=== PATIENT | female | born 1965 | race African-American/Black ===

== ENCOUNTER 2017-03-17 19:27 | Emergency (ER) | payer MEDICARE ==
[2017-03-17] MEDS ORDERED: SODIUM CHLORIDE 0.9% FLUSH 10 ML FLUSH IV FLUSH (21:15)
[2017-03-17 21:43] LABS: AUTOMATED NEUTROPHIL # 3.4 TH/MM3 (1.8-7.7); BASOPHIL # 0.1 TH/MM3 (0-0.2); BASOPHIL % 1.1 % (0.0-2.0); EOSINOPHIL # 0.2 TH/MM3 (0-0.4); EOSINOPHIL % 3.6 % (0.0-4.0); HEMATOCRIT 41.5 % (35.0-46.0); HEMO FLAGS DIFF FINAL; HEMOGLOBIN 13.4 GM/DL (11.6-15.3); LYMPH % 32.2 % (9.0-44.0); MEAN CORPUSCULAR HEMOGLOBIN 27.5 PG (27.0-34.0); MEAN CORPUSCULAR HGB CONC 32.4 % (32.0-36.0); MEAN PLATELET VOLUME 8.6 FL (7.0-11.0); MONO % 8.7 % (0.0-8.0); MONOCYTE # 0.5 TH/MM3 (0-0.9); NEUT % 54.4 % (16.0-70.0); PLATELET COUNT 275 TH/MM3 (150-450); RED BLOOD COUNT 4.88 MIL/MM3 (4.00-5.30); RED CELL DISTRIBUTION WIDTH 14.1 % (11.6-17.2); WHITE BLOOD COUNT 6.3 TH/MM3 (4.0-11.0)
[2017-03-17 21:57] LABS: ALT (GPT) 13 U/L (10-53)
[2017-03-17 21:59] LABS: ALKALINE PHOSPHATASE 88 U/L (45-117); TOTAL BILIRUBIN ADULT 0.3 MG/DL (0.2-1.0); TOTAL PROTEIN 8.1 GM/DL (6.4-8.2)
[2017-03-17 22:02] LABS: ALBUMIN 3.4 GM/DL (3.4-5.0); ANION GAP 3 MEQ/L (5-15); AST (GOT) 17 U/L (15-37); BICARBONATE 30.1 MEQ/L (21.0-32.0); BLOOD UREA NITROGEN 12 MG/DL (7-18); CALCIUM 9.2 MG/DL (8.5-10.1); CHLORIDE 107 MEQ/L (98-107); CREATININE 1.02 MG/DL (0.50-1.00); GLOMERULAR FILTRATION RATE 69 ML/MIN (>89); GLUCOSE,RANDOM 102 MG/DL (74-106); POTASSIUM 4.2 MEQ/L (3.5-5.1); SODIUM (NA) 140 MEQ/L (136-145)
[2017-03-17 22:15] LABS: AMORPHOUS SEDIMENT, URINE RARE; BACTERIA, URINE MANY /hpf; BILIRUBIN, URINE NEG (NEG); BLOOD, URINE NEG (NEG); GLUCOSE,URINE NEG (NEG); KETONE, URINE NEG (NEG); MUCUS URINE MANY /lpf (OCC); NITRITE,URINE NEG (NEG); SQUAMOUS EPITHELIAL CELL URINE 21 /hpf (0-5); URINE COLOR YELLOW (YELLW/STRAW); URINE LEUKOCYTE ESTERASE MOD (NEG)
[2017-03-17 22:16] LABS: COMMENT (UR) CULTURE INDICATED; CULTURE IF INDICATED CULTURE INDICATED
[2017-03-17] MEDS: cefTRIAXone INJ 1,000 MG in SODIUM CHLORIDE 0.9% INJ 100 ML IV (23:01)
== END 2017-03-18 00:53 | disposition home or self-care (01) ==
LOC: NEPD 03-18 00:53
DX: N39.0 Urinary tract infection, site not specified (principal); R42 Dizziness and giddiness; J45.909 Unspecified asthma, uncomplicated; I48.91 Unspecified atrial fibrillation; I10 Essential (primary) hypertension
CPT/HCPCS: 80053; 81001; 85025; 87086; 93005; 96365; 99284-25

== ENCOUNTER 2017-04-05 06:48 | Emergency (ER) | payer MEDICARE ==
[~2017-04-05] VITALS: Ht 170.2 cm; Wt 110.0 kg
[~2017-04-05 06:48] MED LIST: CART120C PO; CHOL10008 PO; FERR325T18 PO; HYDR25TA5 PO; MACR100C2 PO; VENTAER INH
[2017-04-05 06:50] VITALS: BP 148/82; PULSE 92; RESP 16; O2SAT 98
[2017-04-05] MEDS ORDERED: SODIUM CHLORIDE 0.9% FLUSH 10 ML FLUSH IVF PRN (07:30)
--- NOTE | 2017-04-05 07:46 | PD ---
HPI Chief Complaint: Cardiac Complaint Time Seen by Provider: 07:04 Travel History International Travel<30 days: No Contact w/Intl Traveler<30days: No Traveled to known affect area: No History of Present Illness HPI Patient 51-year-old female presents emergency department for an episode of palpitations that occurred earlier this morning about 3:00. She denies any chest pain shortness of breath abdominal pain or nausea vomiting. She states she has a history of atrial fibrillation and is not on any blood thinners currently but has been on blood thinners in the past for clots in her legs and is concerned that she might have developed a new clot in her leg because her left leg is swollen. States symptoms have now resolved, they were mild earlier this morning, associated signs and symptoms in context as above. PFSH Past Medical History Asthma: Yes Atrial Fibrillation: Yes Cardiovascular Problems: Yes (AFIB) Diminished Hearing: No Hypertension: Yes Medical other: Yes (LEFT LEG DVT) Neurologic: Yes (VERTIGO) Reproductive: Yes (UTERINE FIBROIDS) ?: Not Menopausal: Yes : 2 Para: 2 Miscarriage: 0 : 0 Past Surgical History Abdominal Surgery: Yes (HERNIA REPAIR ) Social History Alcohol Use: No (PT DENIES) Tobacco Use: No (QUIT 20 YEARS AGO) Substance Use: No (PT DENIES) Allergies-Medications (Allergen,Severity, Reaction): Coded Allergies: aspirin (Verified Allergy, Severe, HIVES, 04/05/17) penicillin G (Verified Allergy, Severe, HIVES, 04/05/17) morphine (Verified Allergy, Intermediate, HIVES, 04/05/17) Reported Meds & Prescriptions Reported Meds & Active Scripts Active Macrobid (Nitrofurantoin Monoh/Nitrofur Macro) 100 Mg Cap 100 Mg PO BID 7 Days Cartia Xt (Diltiazem ER 24 HR) 120 Mg Caper 120 Mg PO DAILY Hydrochlorothiazide 25 Mg Tab 25 Mg PO DAILY Reported Cartia Xt (Diltiazem ER 24 HR) 120 Mg Caper 120 Mg PO DAILY Ferrous Sulfate 325 Mg (65 Mg Iron) Tablet 325 Mg PO DAILY Vitamin D3 (Cholecalciferol) 1,000 Unit Cap 1,000 Units PO DAILY Hydrochlorothiazide 25 Mg Tab 25 Mg PO DAILY Ventolin Hfa 18 GM Inh (Albuterol Sulfate) 90 Mcg/Act Aer 2 Puff INH Q4H PRN Review of Systems Except as stated in HPI: all other systems reviewed are Neg Physical Exam Narrative GENERAL: Well-developed well-nourished in no obvious distress SKIN: Focused skin assessment warm/dry. HEAD: Atraumatic. Normocephalic. EYES: Pupils equal and round. No scleral icterus. No injection or drainage. ENT: No nasal bleeding or discharge. Mucous membranes pink and moist. NECK: Trachea midline. No JVD. CARDIOVASCULAR: Regular rate and rhythm. No murmur appreciated. RESPIRATORY: No accessory muscle use. Clear to auscultation. Breath sounds equal bilaterally. GASTROINTESTINAL: Abdomen soft, non-tender, nondistended. Hepatic and splenic margins not palpable. MUSCULOSKELETAL: No obvious deformities. No clubbing. No cyanosis. No edema. I did not appreciate any edema of her left lower extremity no palpable cordlike structure and Homans sign is negative NEUROLOGICAL: Awake and alert. No obvious cranial nerve deficits. Motor grossly within normal limits. Normal speech. PSYCHIATRIC: Appropriate mood and affect; insight and judgment normal. Data Data Last Documented VS Vital Signs Date Time Temp Pulse Resp B/P (MAP) Pulse Ox O2 Delivery O2 Flow Rate FiO2 04/05/17 07:40 Room Air 04/05/17 06:52 96 16 98 04/05/17 06:50 148/82 (104) Orders Orders Complete Blood Count With Diff (04/05/17 07:20) Comprehensive Metabolic Panel (04/05/17 07:20) Troponin I (04/05/17 07:20) Act Partial Throm Time (Ptt) (04/05/17 07:20) Prothrombin Time / Inr (Pt) (04/05/17 07:20) Ecg Monitoring (04/05/17 07:20) Iv Access Insert/Monitor (04/05/17 07:20) Oximetry (04/05/17 07:20) Sodium Chloride 0.9% Flush (Ns Flush) (04/05/17 07:30) Us Leg Venous Doppler Bilat (04/05/17 07:20) Chest, Pa & Lat (04/05/17 ) Ed Discharge Order (04/05/17 09:18) Electrocardiogram (04/05/17 06:52) Labs Laboratory Tests Test 04/05/17 07:25 White Blood Count 5.3 TH/MM3 Red Blood Count 5.08 MIL/MM3 Hemoglobin 13.7 GM/DL Hematocrit 43.0 % Mean Corpuscular Volume 84.8 FL Mean Corpuscular Hemoglobin 26.9 PG Mean Corpuscular Hemoglobin Concent 31.7 % Red Cell Distribution Width 14.0 % Platelet Count 285 TH/MM3 Mean Platelet Volume 9.2 FL Neutrophils (%) (Auto) 51.9 % Lymphocytes (%) (Auto) 35.1 % Monocytes (%) (Auto) 9.0 % Eosinophils (%) (Auto) 3.4 % Basophils (%) (Auto) 0.6 % Neutrophils # (Auto) 2.8 TH/MM3 Lymphocytes # (Auto) 1.9 TH/MM3 Monocytes # (Auto) 0.5 TH/MM3 Eosinophils # (Auto) 0.2 TH/MM3 Basophils # (Auto) 0.0 TH/MM3 CBC Comment DIFF FINAL Differential Comment Prothrombin Time 10.2 SEC Prothromb Time International Ratio 1.0 RATIO Activated Partial Thromboplast Time 23.8 SEC Blood Urea Nitrogen 15 MG/DL Creatinine 0.84 MG/DL Random Glucose 94 MG/DL Total Protein 7.9 GM/DL Albumin 3.4 GM/DL Calcium Level 9.3 MG/DL Alkaline Phosphatase 90 U/L Aspartate Amino Transf (AST/SGOT) 11 U/L Alanine Aminotransferase (ALT/SGPT) 10 U/L Total Bilirubin 0.3 MG/DL Sodium Level 139 MEQ/L Potassium Level 3.7 MEQ/L Chloride Level 105 MEQ/L Carbon Dioxide Level 28.7 MEQ/L Anion Gap 5 MEQ/L Estimat Glomerular Filtration Rate 86 ML/MIN Troponin I LESS THAN 0.02 NG/ML MDM Medical Decision Making Medical Screen Exam Complete: Yes Emergency Medical Condition: Yes Differential Diagnosis Palpitations, ACS unlikely, DVT, electrolyte abnormality, atrial fibrillation Narrative Course Patient roomed in the emergency department, labs are reassuring, DVT study of her lower extremity negative, she has been in sinus rhythm or entirety of her ER visit and her EKG reviewed by me is reassuring. Discussed with her need for follow-up with a vineyard worker and return to ED criteria. She is stable for discharge Diagnosis Primary Impression: Palpitations Referrals: John Parikh DO Additional Instructions: Follow up with your vineyard worker this week or with Dr. Parikh (one of our cardiologists). If your having any swelling of your legs in a week recommend repeat ultrasound. Disposition: 01 DISCHARGE HOME Condition: Stable Brayden Dockery MD Apr 05, 2017 07:46
[2017-04-05 07:47] LABS: AUTOMATED NEUTROPHIL # 2.8 TH/MM3 (1.8-7.7); BASOPHIL % 0.6 % (0.0-2.0); EOSINOPHIL # 0.2 TH/MM3 (0-0.4); EOSINOPHIL % 3.4 % (0.0-4.0); HEMOGLOBIN 13.7 GM/DL (11.6-15.3); LYMPH % 35.1 % (9.0-44.0); LYMPHOCYTE # 1.9 TH/MM3 (1.0-4.8); MEAN CELL VOLUME 84.8 FL (80.0-100.0); MEAN CORPUSCULAR HEMOGLOBIN 26.9 PG (27.0-34.0); MEAN CORPUSCULAR HGB CONC 31.7 % (32.0-36.0); MEAN PLATELET VOLUME 9.2 FL (7.0-11.0); MONOCYTE # 0.5 TH/MM3 (0-0.9); NEUT % 51.9 % (16.0-70.0); PLATELET COUNT 285 TH/MM3 (150-450); RED BLOOD COUNT 5.08 MIL/MM3 (4.00-5.30); WHITE BLOOD COUNT 5.3 TH/MM3 (4.0-11.0)
--- NOTE | 2017-04-05 07:48 | RADRPT ---
EXAM DATE/TIME: 04/05/2017 07:35 [facility] COMPARISON: No previous studies available for comparison. INDICATIONS : Palpitations. MEDICAL HISTORY : Hypertension. Asthma SURGICAL HISTORY : None. ENCOUNTER: Initial ACUITY: 1 day PAIN SCORE: 0/10 LOCATION: Bilateral chest FINDINGS: There is diminished inspiratory effort with mild elevation of left hemidiaphragm. This yields unwindi ng of the aorta. Lung hartman are clear without consolidation infiltrate CONCLUSION: No acute disease. Ronald oMntes MD on April 05, 2017 at 7:45 Board Certified Radiologist. This report was verified electronically.
[2017-04-05 07:53] LABS: PROTHROMBIN TIME - PATIENT 10.2 SEC (9.8-11.6)
[2017-04-05 08:04] LABS: ALBUMIN 3.4 GM/DL (3.4-5.0); AST (GOT) 11 U/L (15-37); BICARBONATE 28.7 MEQ/L (21.0-32.0); BLOOD UREA NITROGEN 15 MG/DL (7-18); CALCIUM 9.3 MG/DL (8.5-10.1); CHLORIDE 105 MEQ/L (98-107); CREATININE 0.84 MG/DL (0.50-1.00); GLOMERULAR FILTRATION RATE 86 ML/MIN (>89); GLUCOSE,RANDOM 94 MG/DL (74-106); SODIUM (NA) 139 MEQ/L (136-145)
[2017-04-05 08:09] LABS: ALKALINE PHOSPHATASE 90 U/L (45-117); ALT (GPT) 10 U/L (10-53); TOTAL BILIRUBIN ADULT 0.3 MG/DL (0.2-1.0); TOTAL PROTEIN 7.9 GM/DL (6.4-8.2); TROPONIN I LESS THAN 0.02 NG/ML (0.02-0.05)
--- NOTE | 2017-04-05 09:04 | RADRPT ---
EXAM DATE/TIME: 04/05/2017 07:40 [facility] COMPARISON: No previous studies available for comparison. INDICATIONS : Leg swelling. Previous left leg DVT. MEDICAL HISTORY : Hypertension. Eye problems. Vertigo. Atrial fibrilation. Asthma. Utterine fibroids. SURGICAL HISTORY : Hernia repair. ENCOUNTER: Initial ACUITY: 1 day PAIN SCORE: 2/10 LOCATION: Bilateral Leg. TECHNIQUE: Venous ultrasound of the left and right leg was performed from the inguinal ligament to the proximal calf. Real-time, color Doppler and spectral tracing, compression and augmentation techniques were us ed. FINDINGS: RIGHT LEG: There is normal compressibility of the deep venous system from the inguinal region to the proximal ca lf. No echogenic clot is seen in the lumen of the common femoral, femoral, popliteal, and posterior tibial veins. There is a normal response of the venous system to proximal and distal augmentation an d respiration. LEFT LEG: There is normal compressibility of the deep venous system from the inguinal region to the proximal ca lf. No echogenic clot is seen in the lumen of the common femoral, femoral, popliteal, and posterior tibial veins. There is a normal response of the venous system to proximal and distal augmentation an d respiration. CONCLUSION: Normal examination. Rolando Rhoades MD on April 05, 2017 at 9:01 Board Certified Radiologist. This report was verified electronically.
--- NOTE | 2017-04-05 12:50 | EKG ---
Date Performed: 04/05/2017 Time Performed: 06:52:52 PTAGE: 51 years EKG: Sinus rhythm NORMAL ECG NO PREVIOUS TRACING DOCTOR: Nael Bob Interpretating Date/Time 04/05/2017 12:47:28
== END 2017-04-05 09:51 | disposition home or self-care (01) ==
LOC: NEPC 06:48
DX: R00.2 Palpitations (principal); J45.909 Unspecified asthma, uncomplicated; I48.91 Unspecified atrial fibrillation; I10 Essential (primary) hypertension; Z86.718 Personal history of other venous thrombosis and embolism
CPT/HCPCS: 71046; 80053; 84484; 85025; 85610; 85730; 93005; 93970; 99285